=== PATIENT | female | born 1985 | race Caucasian/White ===

== ENCOUNTER → 2020-08-15 10:56 | Outpatient (BNVA) | payer BC, SELFPAY | PROVIDERS: Family Provider Nurse Practitioner Family; PCP Nurse Practitioner Family; Visit Provider Obstetrics & Gynecology | DX: Z12.4 Encounter for screening for malignant neoplasm of cervix (principal); Z30.011 Encounter for initial prescription of contraceptive pills | CPT/HCPCS: 88175 ==

== ENCOUNTER 2025-05-31 08:50 | Outpatient (CLI) | payer OTHER, SELFPAY ==
--- NOTE | 2025-05-31 08:55 | US_ITS ---
WS: [id number] DIAGNOSTIC BILATERAL DIGITAL BREAST TOMOSYNTHESIS MAMMOGRAPHY WITH CAD RIGHT breast ultrasound. HISTORY: right breast pain COMPARISON: None available. TECHNIQUE: Bilateral craniocaudad, mediolateral oblique, and mediolateral views are submitted with tomosynthesis and SM. Computer aided detection utilized. Breast composition: The breasts are heterogeneously dense, which may obscure small masses. No areas of architectural distortion. Fibroglandular densities are symmetric. Benign calcifications in the RIGHT breast. No abnormality noted to correspond to the pain. Ultrasound to follow. RIGHT breast ultrasound, limited. Ultrasound directed to the areas of pain. Area of pain includes the upper inner quadrant and lower inner quadrant. No abnormalities are identified. Normal appearance of the soft tissues. No mass or shadowing. US/US breast RT limited* [id number] IMPRESSION: BI-RADS: 2 - Benign FOLLOW UP: 1 Year Follow-up No RIGHT breast abnormality noted in the area of pain. Recommend annual screeni ng mammography.
--- NOTE | 2025-05-31 09:15 | MM_ITS ---
WS: [id number] DIAGNOSTIC BILATERAL DIGITAL BREAST TOMOSYNTHESIS MAMMOGRAPHY WITH CAD RIGHT breast ultrasound. HISTORY: right breast pain COMPARISON: None available. TECHNIQUE: Bilateral craniocaudad, mediolateral oblique, and mediolateral views are submitted with tomosynthesis and SM. Computer aided detection utilized. Breast composition: The breasts are heterogeneously dense, which may obscure small masses. No areas of architectural distortion. Fibroglandular densities are symmetric. Benign calcifications in the RIGHT breast. No abnormality noted to correspond to the pain. Ultrasound to follow. RIGHT breast ultrasound, limited. Ultrasound directed to the areas of pain. Area of pain includes the upper inner quadrant and lower inner quadrant. No abnormalities are identified. Normal appearance of the soft tissues. No mass or shadowing. MM/MM diag BI tomosynthesis [id number] IMPRESSION: BI-RADS: 2 - Benign FOLLOW UP: 1 Year Follow-up No RIGHT breast abnormality noted in the area of pain. Recommend annual screeni ng mammography.
== END 2025-05-31 08:51 | disposition home or self-care (01) ==
LOC: RAD 08:52
PROVIDERS: PCP Family Medicine; Visit Provider Family Medicine
DX: N64.4 Mastodynia (principal); R92.321 Mammographic fibroglandular density, right breast; R92.331 Mammographic heterogeneous density, right breast; R92.1 Mammographic calcification found on diagnostic imaging of breast
CPT/HCPCS: 36415; 76642; 77062; 80053; 80061; 84443; 85025; 87624; G0279